=== PATIENT | female | born 1970 | race Hispanic/Latino ===

== ENCOUNTER 2024-04-19 18:12 | Emergency (ER) | payer OTHER ==
[~2024-04-19] VITALS: Ht 144.8 cm; Wt 83.0 kg
[2024-04-19 18:57] VITALS: BP 141/89; PULSE 60; RESP 18; TEMP 97.9; O2SAT 98
[2024-04-19 19:51] VITALS: BP 125/70; PULSE 60; RESP 18; TEMP 97.9; O2SAT 98
[2024-04-19] MEDS ORDERED: TORADOL ONE (19:58)
[2024-04-19] MEDS ORDERED: NEURONTIN ONE (19:58)
[2024-04-19] MEDS: NEURONTIN PO STA (20:02)
[2024-04-19] MEDS: TORADOL IM STA (20:03)
[2024-04-19 20:51] VITALS: BP 131/70; PULSE 58; RESP 18; TEMP 97.9; O2SAT 98
== END 2024-04-19 20:53 | disposition home or self-care (01) ==
LOC: ER 18:12
DX: R20.2 Paresthesia of skin (principal); E11.9 Type 2 diabetes mellitus without complications; I10 Essential (primary) hypertension; E07.9 Disorder of thyroid, unspecified
CPT/HCPCS: 99283; 96372; 73110; J1885